=== PATIENT | female | born 1935 | race Caucasian/White ===

== ENCOUNTER 2018-12-03 12:12 | Emergency (ER) | payer MEDICARE ==
[~2018-12-03] VITALS: Ht 152.4 cm; Wt 48.6 kg
[2018-12-03 12:53] LABS: BASO % 0.2 % (0.0-2.0); EOS # 0.1 (0.0-0.7); EOS % 0.8 % (0-4.0); GRAN # 11.2 (1.4-6.5); GRAN % 64.9 % (42.2-75.2); HEMATOCRIT 38.1 % (37.0-47.0); HEMOGLOBIN 12.7 g/dl (12.5-16.0); LYMPH # 4.5 (1.2-3.4); LYMPH % 26.1 % (20.0-51.0); MEAN CELL VOLUME 86 fl (80.0-100.0); MEAN CORPUSCULAR HEMOGLOBIN 29 pg (27.0-31.0); MEAN CORPUSCULAR HGB CONC 33 g/dl (33.0-37.0); MEAN PLATELET VOLUME 9.7 fl (7.4-10.4); MONO # 1.3 (0.1-0.6); MONO % 7.4 % (1.7-9.3); PLATELET COUNT 277 K/mm3 (130-400); RED BLOOD COUNT 4.43 M/mm3 (4.10-5.30); REDCELL DISTRIBUTION WIDTH-CV 13.2 % (11.5-14.5)
[2018-12-03 12:58] LABS: INR 1.1 (0.8-3.0); PROTHROMBIN TIME 12.7 SECONDS (9.7-12.8)
[2018-12-03 13:00] LABS: PARTIAL THROMBOPLASTIN TIME 32.1 SECONDS (26.0-37.0)
[2018-12-03 13:01] LABS: ALBUMIN 4.1 gm/dL (3.5-5.0); BILIRUBIN,TOTAL 0.9 mg/dL (0.0-1.0); CALCIUM 9.5 mg/dL (8.4-10.2); CREATININE, serum 1.01 mg/dL (0.52-1.25); POTASSIUM 3.6 mmol/L (3.4-5.0); TOTAL PROTEIN 7.8 gm/dL (6.4-8.2)
[2018-12-03 13:15] LABS: COLLECTION METHOD CLEAN CATCH
[2018-12-03 13:21] LABS: MUCOUS Present /lpf; PH 5 (5-8); SQUAMOUS EPITHELIAL 0-2 /hpf; URINE APPEARANCE Clear; URINE BACTERIA None Seen /hpf; URINE BILIRUBIN Negative (NEGATIVE); URINE BLOOD Negative (NEGATIVE); URINE COLOR Yellow; URINE GLUCOSE Negative (NEGATIVE); URINE KETONE Trace (NEGATIVE); URINE LEUKOCYTE ESTERASE Trace (NEGATIVE); URINE NITRATE Negative (NEGATIVE); URINE PROTEIN(semi-quant) 1+ (NEGATIVE); URINE RBC 0-2 /hpf; URINE UROBILINOGEN >=4.0 mg/dL (NEGATIVE)
[2018-12-03 15:08] VITALS: TEMP 99
[2018-12-03 16:16] VITALS: BP 155/69; PULSE 120
== END 2018-12-03 16:16 | disposition short-term general hospital (02) ==
LOC: COL.ER 12:12
PROVIDERS: Emergency Medicine
DX: I63.9 Cerebral infarction, unspecified (principal)
CPT/HCPCS: J7050